=== PATIENT | male | born 1995 | race Caucasian/White ===

== ENCOUNTER 2023-06-24 02:20 | Emergency (ER) | payer MEDICAID, SELFPAY ==
[2023-06-24 02:21] VITALS: BP 116/80; PULSE 100; RESP 17; TEMP 36.2; O2SAT 100; BMI 20.2
--- NOTE | 2023-06-24 02:30 | EDS_ITS ---
HPI History of Present Illness Chief Complaint: Laceration PFSH PFSH Allergy/AdvReac Type Severity Reaction Status Date / Time morphine AdvReac Intermediate Vomiting Verified 06/24/23 02:30 Social History Smoking Status: Current every day smoker tobacco type: cigarettes EXAM Physical Exam Const Vital Signs: 06/24/23 02:21 Temperature 97.1 F L Temperature Source Temporal Pulse Rate 100 Respiratory Rate 17 Blood Pressure 116/80 Blood Pressure Mean 92 Pulse Ox 100 Oxygen Delivery Method Room Air [facility] [place] Narr[place] Medical decision making narrative: HISTORY OF PRESENT ILLNESS: 27-year-old male here for left hand laceration. REVIEW OF SYSTEMS: Pertinent positives: Laceration Pertinent negatives: Numbness or loss of sensation PHYSICAL EXAM: Nursing triage notes reviewed, Vital signs reviewed Constitutional: please see mdm Neuro: Intact 5/5 strength with ok sign (median), intact finger abduction (ulnar) intact wrist extension (radial n). Intact sensation in the radial, ulnar, and median nerve distributions. Extremities: Left hand with intact flexion (flexor digitorum superficialis, flexor digitorum profundus) and extension mechanisms. Skin: Mild abrasion noted to the distal palmar surface of the third digit. MEDICAL DECISION MAKING: Chief Complaint: Laceration External records reviewed: No documented tetanus immunization [facility] Narrative: Patient was hemodynamically stable, afebrile, nontoxic-appearing. Exam there is a small defect in the distal tip of the third digit. No obvious laceration, no tendinous involvement. The patient suffered lacerations to the left hand There is no evidence to suggest foreign bodies were history and exam. Visual and tactile exams are unremarkable. There was no evidence of neurovascular injury. Patient had a normal distal vascular exam, and had full normal motor and sensory exams. There was also no evidence of tendon injury, with normal distal full range of motion, flexion, extension, abduction, abduction. There is no evidence of local joint space involvement at this time. Laceration was soaked in sterile saline and chlorhexidine. Performed laceration repair please see procedure note. The patient was given signs and symptoms warnings for infection, such as increasing pain, redness, swelling, associated heat, pus or fever. Patient was given instructions for timely follow-up for removal. Patient agreed with the plan of care Procedure: Laceration repair. The procedure was performed by myself. Indication: Wound repair Risks and benefits: risks, benefits and alternatives were discussed Consent: Consent was obtained. Wound Details: Linear approximately 0.25 cm superficial approximately 1 mm depth laceration noted to the palmar surface of the left third digit. Anesthesia: None Wound prep: Patient was prepped and draped in the usual sterile fashion. Tetanus: We will update here in the emergency Irrigation Solution: Saline Wound Preparation: saline, chlorhexidine soak for 15 minutes The wound was explored to its base in a bloodless field. Procedure Description: Applied Dermabond with good approximation. Patient tolerated the procedure well with no immediate complications The patient and/or family, caregivers express understanding. The patient and/or family, caregivers agrees with the plan. Shared decision making: I will have a discussion with the patient and or visitors regarding risk/benefits of further testing or admission. They will be made aware of of the risk/benefits inherent in this decision they will be given the opportunity to voice understanding. Total critical care time today provided was at least 0 minutes. This excludes separately billable procedures. Critical care time (if documented) is secondary to the patient having high probability of clinically significant/life threatening deterioration in the patient's condition which required my urgent intervention. Impression: 1. Finger laceration Dispo: discharge Discharge Plan Triage Chief Complaint: Laceration ED Provider: Anthony Brar Dx/Rx/DC Orders Clinical Impression: Finger laceration Instructions: ED Laceration: Skin Adhesive Stand Alone Forms: ED Work / School Excuse Primary Care Provider: Care Physician,No Primary Activity Restrictions/Additional Instructions: Thank you for trusting us with your care today! Please take Tylenol (2 pills, 650 mg), ibuprofen (2 pills, 400 mg) every 6 hours as needed for pain and fever control. Please return to the emergency department if your symptoms change or worsen. Typically develop increasing redness, pain, white-yellow discharge at the injury site (these are signs of infection). Keep your site clean and dry. Please keep it covered at work or other activities that will soil the area. Observe your wound daily for signs of infection. You may return to work immediately with augmented activities depending on your pain tolerance. Please follow with your primary care physician for further outpatient evaluation and management. Disposition Disposition: Home, Self Care Discharge Date/Time: 06/24/23 03:26
[2023-06-24] MEDS: Diphth,Pertuss(Acell),Tet Vac 0.5 ML Vial IM (03:06)
== END 2023-06-24 03:26 | disposition home or self-care (01) ==
PROVIDERS: Emergency Provider Emergency Medicine; Visit Provider Emergency Medicine
DX: S61.213A Laceration without foreign body of left middle finger without damage to nail, initial encounter (principal); F17.210 Nicotine dependence, cigarettes, uncomplicated; X58.XXXA Exposure to other specified factors, initial encounter; Z23 Encounter for immunization
CPT/HCPCS: 12001; 99281; 90471; 90715; 99282